=== PATIENT | male | born 1995 | race Caucasian/White ===

== ENCOUNTER 2016-08-26 17:55 | Emergency (ER) | payer OTHER ==
[~2016-08-26] VITALS: Ht 167.6 cm; Wt 83.9 kg
[2016-08-26 19:14] VITALS: BP 141/98
--- NOTE | 2016-08-26 20:35 | NUR ---
PT TAKEN TO BED 6
--- NOTE | 2016-08-26 20:50 | NUR ---
PT IS 20/M BIB SELF WEAKNESS, WITH ON AND OFF FAST HEART RATE, HE TOOK MARIJUANA AT 1230 HOURS. PT STATES NO MED HX . DENIES N/V/D; SKIN IS PINK/WARM/DRY; AAOX4 WITH EVEN AND STEADY GAIT; LUNGS CLEAR BL; HR EVEN AND REGULAR; PT DENIES ANY FEVER, CP, SOB, OR COUGH AT THIS TIME; PATIENT STATES PAIN OF 0/10 AT THIS TIME; VSS; PATIENT POSITIONED FOR COMFORT; HOB ELEVATED; BEDRAILS UP X2; BED DOWN. ER MD MADE AWARE OF PT STATUS.
--- NOTE | 2016-08-26 21:11 | NUR ---
Dr. Chang evaluating patient at bedside.
[2016-08-26 21:35] VITALS: BP 130/96
--- NOTE | 2016-08-26 21:35 | NUR ---
Patient discharged with v/s stable. Written and verbal after care instructions given and explained. Patient alert, oriented and verbalized understanding of instructions. Ambulatory with steady gait. All questions addressed prior to discharge. ID band removed. Patient advised to follow up with PMD. NO Rx WERE given. Patient educated on indication of medication including possible reaction and side effects. Opportunity to ask questions provided and answered.
[2016-08-26 21:39] LABS: AMPHETAMINE, URINE NEG. ng/ml (NEG <=1000); BARBITURATE, URINE NEG. ng/ml (NEG <=200); BENZODIAZEPINE, URINE NEG. ng/mL (NEG <=200); CANNABINOID, URINE NEG. ng/mL (NEG <=50); COCAINE, URINE NEG. ng/mL (NEG <=300); OPIATE, URINE NEG. ng/mL (NEG <=2000); PHENCYCLIDINE SCREEN,URINE NEG. ng/mL (NEG <=25)
== END 2016-08-26 21:35 | disposition home or self-care (01) ==
LOC: MED 17:55
DX: F12.10 Cannabis abuse, uncomplicated (principal)
CPT/HCPCS: 80305; 99283